=== PATIENT | male | born 1975 | race African-American/Black ===

== ENCOUNTER 2019-05-06 13:04 | Emergency (ER) | payer SELFPAY ==
[~2019-05-06] VITALS: Ht 170.2 cm; Wt 85.0 kg
[2019-05-06 13:11] VITALS: BP 143/105
== END 2019-05-06 14:00 | disposition left against medical advice (07) ==
LOC: EMS 13:09
DX: R05 Cough (principal); Z53.21 Procedure and treatment not carried out due to patient leaving prior to being seen by health care provider

== ENCOUNTER 2019-05-10 19:02 | Emergency (ER) | payer OTHER ==
[~2019-05-10] VITALS: Ht 170.2 cm; Wt 85.0 kg
[2019-05-10] MEDS ORDERED: ALBUTEROL SULFATE HFA 90 MCG/PUFF 8 GM INHALER IH ONE (21:15)
[2019-05-10 22:45] VITALS: BP 134/87
== END 2019-05-10 22:47 | disposition home or self-care (01) ==
LOC: EMS 19:02
DX: R05 Cough (principal)
CPT/HCPCS: 94640; J3535

== ENCOUNTER 2020-01-30 15:52 | Emergency (ER) | payer OTHER ==
[~2020-01-30] VITALS: Ht 170.2 cm; Wt 79.1 kg
[2020-01-30 16:44] VITALS: BP 137/72
== END 2020-01-30 17:25 | disposition home or self-care (01) ==
LOC: EMS 15:54
DX: K61.0 Anal abscess (principal)
CPT/HCPCS: 99283; Z7502

== ENCOUNTER 2020-09-03 15:43 | Emergency (ER) | payer OTHER ==
[~2020-09-03] VITALS: Ht 170.2 cm; Wt 83.6 kg
[2020-09-03 16:11] VITALS: BP 141/89
== END 2020-09-03 17:08 | disposition home or self-care (01) ==
LOC: EMS 15:43
DX: J40 Bronchitis, not specified as acute or chronic (principal)
CPT/HCPCS: 99283; Z7502

== ENCOUNTER 2021-04-06 15:11 | Emergency (ER) | payer OTHER ==
[~2021-04-06] VITALS: Ht 170.2 cm; Wt 72.7 kg
[2021-04-06 15:29] VITALS: BP 126/82
== END 2021-04-06 18:37 | disposition left against medical advice (07) ==
LOC: EMS 15:11
DX: N48.89 Other specified disorders of penis (principal); Z53.21 Procedure and treatment not carried out due to patient leaving prior to being seen by health care provider

== ENCOUNTER 2023-06-12 14:19 | Emergency (ER) | payer MEDICAID, OTHER ==
[~2023-06-12] VITALS: Ht 177.8 cm; Wt 86.4 kg
[2023-06-12 14:42] LABS: COVID AG,FIA SOURCE NASAL SWAB
[2023-06-12 15:02] LABS: INFLUENZA TYPE A NEGATIVE FOR TYPE A (NEGATIVE); INFLUENZA TYPE B NEGATIVE FOR TYPE B (NEGATIVE); SARS-COV2 (COVID) ANTIGEN,FIA Negative (Negative)
[2023-06-12 15:08] LABS: RAPID GROUP A STREP NEGATIVE (NEGATIVE)
[2023-06-12] MEDS ORDERED: BENZ-227 PO (17:10)
[2023-06-12] MEDS ORDERED: ACET-3385 PO (17:10)
[2023-06-12] MEDS: ACETAMINOPHEN 500 MG TABLET PO ONE (17:16)
[2023-06-12] MEDS: BENZONATATE 100 MG CAPSULE PO ONE (17:16)
[2023-06-12 17:19] VITALS: BP 143/107; PULSE 68; RESP 18; TEMP 100.4
== END 2023-06-12 17:27 | disposition home or self-care (01) ==
LOC: EMS 14:19
DX: R05.9 Cough, unspecified (principal); Z20.822 Contact with and (suspected) exposure to COVID-19
CPT/HCPCS: 71045; 87430; 87804; 99284